=== PATIENT | male | born 1995 | race Caucasian/White ===

== ENCOUNTER 2016-12-18 13:21 | Emergency (ER) | payer OTHER ==
[~2016-12-18] VITALS: Ht 162.6 cm; Wt 49.9 kg
[2016-12-18 14:39] VITALS: BP 127/90
== END 2016-12-18 15:35 | disposition home or self-care (01) ==
LOC: ER 13:27
DX: S39.012A Strain of muscle, fascia and tendon of lower back, initial encounter (principal); X58.XXXA Exposure to other specified factors, initial encounter; Y93.89 Activity, other specified; Y99.8 Other external cause status; Y92.89 Other specified places as the place of occurrence of the external cause
CPT/HCPCS: 72110

== ENCOUNTER 2023-10-15 09:04 | Emergency (ER) | payer SELFPAY ==
[~2023-10-15] VITALS: Ht 177.8 cm; Wt 61.7 kg
[2023-10-15 18:07] VITALS: BP 138/98; PULSE 78; RESP 18; O2SAT 97
== END 2023-10-15 18:58 | disposition left against medical advice (07) ==
LOC: ER 09:04
DX: M79.621 Pain in right upper arm (principal); Z53.21 Procedure and treatment not carried out due to patient leaving prior to being seen by health care provider

== ENCOUNTER 2024-05-18 02:34 | Emergency (ER) | payer SELFPAY ==
[~2024-05-18] VITALS: Ht 162.6 cm; Wt 61.0 kg
[2024-05-18] MEDS: KETOROLAC TROMETH 30 MG/ML 1ML VIAL IV ONE (06:45)
[2024-05-18] MEDS: ONDANSETRON HCL 4 MG/2 ML VIAL IV ONE (06:45)
[2024-05-18 06:53] VITALS: BP 145/103; PULSE 76; RESP 20; TEMP 97.7; O2SAT 98
[2024-05-18 07:19] LABS: Basophils # (auto) 0.1 10 ^3/uL (0-0.2); Basophils % (auto) 0.6 % (0.0-2.0); Eosinophils # (auto) 0.2 10 ^3/uL (0-0.8); Eosinophils % (auto) 1.8 % (0.0-7.0); Hematocrit 47.7 % (41.0-53.0); Hemoglobin 16.8 g/dL (13.5-17.5); Lymphocytes # (auto) 2.8 10 ^3/uL (0.4-5.4); Lymphocytes % (auto) 34.2 % (10.0-50.0); Mean Corpuscular Hemoglobin 32.5 pg (28.0-32.0); Mean Corpuscular Hgb Conc. 35.3 g/dL (32.0-36.0); Mean Corpuscular Volume 91.8 fL (80.0-100.0); Monocytes # (auto) 0.8 10 ^3/uL (0-1.3); Monocytes % (auto) 9.7 % (0.0-12.0); Neutrophils # (auto) 4.4 10 ^3/uL (1.6-8.6); Neutrophils % (auto) 53.7 % (37.0-80.0); Nucleated Red Blood Cells % 0.1 %; Red Blood Cells 5.19 10^6/uL (4.5-5.90); Red Cell Distribution Width 12.6 % (11.8-14.3); White Blood Cell 8.3 10^3/uL (4.4-10.8)
[2024-05-18] MEDS: SODIUM CHLORIDE 0.9% 1,000 ML IV ONE (07:29)
[2024-05-18 07:39] LABS: Alanine Aminotransferase 41 U/L (7-40); Albumin 5.2 g/dL (3.2-4.8); Alkaline Phosphatase 100 U/L (46-116); Anion Gap 6 (5-15); Aspartate Aminotransferase 16 U/L (13-40); Bilirubin, Total 0.9 mg/dL (0.2-1.0); Calcium 10.1 mg/dL (8.5-10.1); Carbon Dioxide 27 mmol/L (20-30); Chloride 105 mmol/L (98-107); Glucose 89 mg/dL (74-106); Potassium 4.4 mmol/L (3.5-5.1); Sodium 138 mmol/L (136-145); Total Protein 7.7 g/dL (5.7-8.2)
[2024-05-18 07:42] LABS: BUN/Creatinine Ratio 7.8 (10.0-20.0); Blood Urea Nitrogen < 5 mg/dL (9-23)
[2024-05-18] MEDS ORDERED: SUMA50TA2 PO (08:16)
== END 2024-05-18 08:28 | disposition home or self-care (01) ==
LOC: ER 02:34
DX: R51.9 Headache, unspecified (principal)
CPT/HCPCS: 36415; 70450; 80053; 85025; 96361; 96374; 96375; 99285; J1885; J2405; J7030

== ENCOUNTER 2025-07-21 06:36 | Emergency (ER) | payer MEDICAID ==
[~2025-07-21] VITALS: Ht 162.6 cm; Wt 63.6 kg
[~2025-07-21 06:36] MED LIST: SUMA50TA2 PO
--- NOTE | 2025-07-21 07:21 | ED.PDOC ---
Musculoskeletal HPI Comments THIS IS A 29 YEAR-OLD MALE WHO PRESENTS TO THE ED WITH A CHIEF COMPLAINT OF L FOOT, 4TH TOE PAIN WITH SWELLING S/P STUBBING TOE AT 2000 YESTERDAY. PATIENT STATES HE WAS CHASING HIS NIECE WHEN HE STUBBED THE TOE. PATIENT HAS NO FURTHER COMPLAINTS AT THIS TIME AND OTHERWISE DENIES FURTHER SYMPTOMS OF FEVER, CHILLS, N/V, HEADACHE, OR CHEST PAIN. PATIENT IS ALERT, ORIENTED X 4, AND HAS STEADY GAIT. Chief Complaint: Lower Extremity Time Seen by MD: 07:20 Primary Care Provider: NONE Reviewed Notes: Nurses Notes, Medications, Allergies Allergies: Coded Allergies: NO KNOWN ALLERGIES (Unverified , 12/18/16) Home Meds Active Scripts Naproxen (Naproxen) 500 Mg Tab, 500 MG PO BID, #30 TAB Prov:FELICIANO COLE 07/21/25 Sumatriptan Succinate (Imitrex) 50 Mg Tab, 50 MG PO BIDPRN PRN for 5 Days, #9 TAB Take one tablet at onset of headache, repeat dose in 2 hours if headache persists. Max dose 100 mg in 24 hours. Prov:ARELY CHAN NP 05/18/24 Information Source: Patient Mode of Arrival: Ambulatory Location: Left Extremity Location: Foot, Toe 4 Timing: Hours Prehospital treatment: None Severity: Moderate Pain: Moderate Circumstances: Playing Onset of Symptoms: After Trauma Symptoms: Swelling, Pain DVT Risk Factors: NONE Last Tetanus: UTD Associated signs and symptoms: Foot pain (L FOOT 4TH TOE ) Past Medical History PAST MEDICAL HISTORY: Denies Surgical History: Denies all surgeries Family History Family History: Unknown Social History Smoker: Non-Smoker Alcohol: Denies ETOH Use Drugs: Denies Drug Use Lives In: Home Constitutional: denies: chills, diaphoresis, fatigue, fever, malaise, sweats, weakness, others EENTM: denies: blurred vision, double vision, ear bleeding, ear discharge, ear drainage, ear pain, ear ringing, eye pain, eye redness, hearing loss, mouth pain, mouth swelling, nasal discharge, nose bleeding, nose congestion, nose pain, photophobia, tearing, throat pain, throat swelling, voice changes, others Respiratory: denies: cough, hemoptysis, orthopnea, SOB at rest, shortness of breath, SOB with excertion, stridor, wheezing, others Cardiovascular: denies: chest pain, dizzy spells, diaphoresis, Dyspnea on exertion, edema, irregular heart beat, left arm pain, lightheadedness, palpitations, PND, syncope, others Gastrointestinal: denies: abdomen distended, abdominal pain, blood streaked bowels, constipated, diarrhea, dysphagia, difficulty swallowing, hematemesis, melena, nausea, poor appetite, poor fluid intake, rectal bleeding, rectal pain, vomiting, others Genitourinary: denies: burning, dysuria, flank pain, frequency, hematuria, incontinence, penile discharge, penile sore, pain, testicle pain, testicle swelling, urgency, others Neurological: denies: dizziness, fainting, headache, left sided numbness, left sided weakness, numbness, paresthesia, pre-existing deficit, right sided numbness, right sided weakness, seizure, speech problems, tingling, tremors, weakness, others Musculoskeletal: reports: joint pain, joint swelling; denies: back pain, gout, muscle pain, muscle stiffness, neck pain, others Integumetry: denies: bruises, change in color, change in hair/nails, dryness, laceration, lesions, lumps, rash, wounds, others Allergic/Immunocompromised: denies: Difficulty Healing, Frequent Infections, Hives, Itching, others Hematologic/Lymphatic: denies: anemia, blood clots, easy bleeding, easy bruising, swollen glands, others Endocrine: denies: excessive hunger, excessive sweating, excessive thirst, excessive urination, flushing, intolerance to cold, intolerance to heat, unexplained weight gain, unexplained weight loss, others Psychiatric: denies: anxiety, bipolar disorder, depression, hopeless, panic disorder, schizophrenia, sleepless, suicidal, others All Other Systems: Reviewed and Negative Physical Exam General Appearance: No Apparent Distress, Normal HEENT: Normal ENT Inspection, PERRL/EOMI, Pharynx Normal, TMs Normal Neck: Full Range of Motion, Non-Tender, Normal, Normal Inspection Respiratory: Chest Non-Tender, Lungs Clear, No Accessory Muscle Use, No Respiratory Distress, Normal Breath Sounds Cardiovascular: No Edema, No JVD, No Murmur, No Gallop, Normal Peripheral Pulses, Regular Rate/Rhythm Breast Exam: Deferred Gastrointestinal: No Organomegaly, Non Tender, No Pulsatile Mass, Normal Bowel Sounds, Soft Genitalia: Deferred Pelvic: Deferred Rectal: Deferred Extremities: No calf tenderness, Normal capillary refill, Normal range of motion, No pedal edema, Tender (AND CONTUSION ON LEFT 4TH TOE, NO BONY TENDERNESS AND DEFORMITY. ) Musculoskeletal : Apperance: Normal Neurologic: Alert, automatic door mechanic II-XII nml as Tested, No Motor Deficits, Normal Affect, Normal Mood, No Sensory Deficits Cerebellar Function: Normal Reflexes: Normal Skin: Bruises (ON LEFT 4TH TOE, NO BONY TENDERNESS AND SWELLING. ), Dry, Normal Color, Warm Peripheral Pulses: 2+ carotid (R), 2+ carotid (L), 2+ dorsalis pedis (R), 2+ dorsalis pedis (L) Lymphatic: No Adenopathy Was a procedure done? Was a procedure done?: No Differential Diagnosis EXT Differential Diagnosis: Fracture, Sprain, Contusion, Bursitis X-Ray, Labs, Meds, VS Vital Signs Date Time Temp Pulse Resp B/P (MAP) Pulse Ox O2 Delivery O2 Flow Rate FiO2 07/21/25 07:48 98.0 84 18 134/97 (109) 97 98.0 07/21/25 07:48 84 18 97 Room Air 07/21/25 06:41 98.0 84 18 134/97 97 98.0 X-Ray, Labs, Meds, VS Comment EXTERNAL MEDICAL RECORDS REVIEWED: [NONE] INDEPENDENT HISTORIANS: [NONE] SOCIAL DETERMINANTS OF HEALTH: [NONE] LABS ORDERED: NONE REVIEWED AND INTERPRETED RESULTS: NONE IMAGING ORDERED: L FOOT 3V XRAY: NO FX AND DISLOCATION, READ BY ME, PENDING RADIOLOGIST READING. TREATMENTS ORDERED: NONE PROCEDURES PERFORMED: NONE CRITICAL CARE TIME: NONE I HAVE DISCUSSED THE PATIENT WITH THE ATTENDING PHYSICIAN, DR. WADE, AND HE AGREES WITH THE PATIENT'S PLAN OF CARE AND DISPOSITION. BASED ON HISTORY OF PRESENT ILLNESS, AND PHYSICAL EXAM, PATIENT WILL BE DISCHARGED HOME. DISCUSSED PLAN FOR DISCHARGE HOME WITH RX: NAPROXEN 500MG, MEDICATION WARNINGS GIVEN. SHARED DECISION MAKING: DISCUSSED WITH PATIENT THAT THEIR WORKUP WAS NORMAL. PATIENT INSTRUCTED TO FOLLOW UP WITH PRIMARY CARE PROVIDER IN 1-2 DAYS FOR RE- EVALUATION OF SYMPTOMS. PATIENT VERBALIZES UNDERSTANDING TO RETURN TO ED FOR NEW OR WORSENING SYMPTOMS OR IF FOLLOW UP WITH PCP CANNOT BE OBTAINED. PATIENT FEELS COMFORTABLE GOING HOME AT THIS TIME. ALL QUESTIONS ADDRESSED AT TIME OF DISCHARGE. Images Reviewed?: Images reviewed and evaluated by me Time of 1ST Reevaluation: 07:41 Reevaluation 1ST: Unchanged Patient Education/Counseling: Diagnosis, Treatment, Need For Follow Up Family Education/Counseling: No Family Present Medical Screening: No EMC Exist At This Time Departure 1 Departure Time of Disposition: 07:42 Impression: Primary Impression: Contusion of fourth toe of left foot Qualified Codes: S90.122A - Contusion of left lesser toe(s) without damage to nail, initial encounter Disposition: HOME / SELF CARE / HOMELESS Condition: Stable Additional Instructions: FOLLOW-UP WITH PCP IN 1 TO 2 DAYS. RETURN TO ED FOR ANY NEW OR WORSENING SYMPTOMS. e-Prescriptions Naproxen (Naproxen) 500 Mg Tab 500 MG PO BID, #30 TAB Prov: FELICIANO COLE 07/21/25 Discharged With: Self Critical Care Note Critical Care Time?: No Stability Stability form required: No Heart Score Heart Score: Heart Score Response (Comments) Value History N/A 0 EKG N/A 0 Age N/A 0 Risk Factors N/A 0 Troponin N/A 0 Total 0 I personally scribed for FELICIANO COLE ([email or web address]) on 07/21/25 at 07:21. Electronically submitted by Nicole Gauthier ([email or web address]). I personally scribed for FELICIANO COLE ([email or web address]) on 07/21/25 at 07:28. Electronically submitted by Nicole Gauthier ([email or web address]). I personally scribed for FELICIANO COLE ([email or web address]) on 07/21/25 at 07:39. Electronically submitted by Nicole Gauthier ([email or web address]). FELICIANO COLE Jul 21, 2025 07:21
[2025-07-21] MEDS ORDERED: NAPR-746 PO (07:38)
--- NOTE | 2025-07-21 07:45 | DVH ---
CLINICAL INDICATION: left 4th toe pain post injury TECHNIQUE: XY L FOOT 3 VIEW XRAY Comparison: None FINDINGS/IMPRESSION: : There is no evidence of acute fracture or dislocation. Soft tissues are unremarkable.
[2025-07-21 07:48] VITALS: BP 134/97; PULSE 84; RESP 18; TEMP 98; O2SAT 97
== END 2025-07-21 07:49 | disposition home or self-care (01) ==
LOC: ER 06:36
DX: S90.129A Contusion of unspecified lesser toe(s) without damage to nail, initial encounter (principal); Z79.899 Other long term (current) drug therapy; W01.0XXA Fall on same level from slipping, tripping and stumbling without subsequent striking against object, initial encounter; Y93.89 Activity, other specified; Y92.89 Other specified places as the place of occurrence of the external cause; Y99.8 Other external cause status
CPT/HCPCS: 73630